=== PATIENT | female | born 1965 | race Hispanic/Latino ===

== ENCOUNTER 2021-03-21 10:11 | Emergency (ER) | payer OTHER ==
--- NOTE | 2021-03-21 11:18 | ER ---
Nurse's Notes [facility] Name: Linwood Glasgow Age: 56 yrs Sex: Female : 1965 Arrival Date: 03/21/2021 Time: 10:17 Bed 11 Private MD: Diagnosis: Other chronic pain Presentation: 03/21 10:24 Chief complaint: Patient states: She has had back pain for "months and months". Patient ap3 states the pain from her back has been giving her headaches and making her arms hurt as well. Patient reports she has an appointment with Dr. Salguero tomorrow. Patient reports that she has seen multiple Dr's for this issue, but no one has given her any pain medication. Coronavirus screen: At this time, the client does not indicate any symptoms associated with coronavirus-19. Ebola Screen: No symptoms or risks identified at this time. Initial Sepsis Screen: Does the patient meet any 2 criteria? No. Patient's initial sepsis screen is negative. Does the patient have a suspected source of infection? No. Patient's initial sepsis screen is negative. Risk Assessment: Do you want to hurt yourself or someone else? Patient reports no desire to harm self or others. Onset of symptoms is unknown. 10:24 Method Of Arrival: Ambulatory ap3 10:24 Acuity: BELA 4 ap3 Triage Assessment: 10:28 General: Appears in no apparent distress. Behavior is calm, cooperative. Pain: ap3 Complains of pain in back Pain radiates to right arm and left arm and head. Neuro: Level of Consciousness is awake, alert, obeys commands, Oriented to person, place, time, situation, Moves all extremities. Gait is steady, Speech is normal. Cardiovascular: Patient's skin is warm and dry. Respiratory: Airway is patent Respiratory effort is even, unlabored, Respiratory pattern is regular, symmetrical. Musculoskeletal: Range of motion: intact in all extremities. 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 Last tetanus immunization: unknown. - Social history:: Smoking status: Patient reports the use of cigarette tobacco products, smokes one-half pack cigarettes per day. Screenin:29 Abuse screen: Denies threats or abuse. Nutritional screening: No deficits noted. ap3 Tuberculosis screening: No symptoms or risk factors identified. Fall Risk None identified. Vital Signs: 10:35 BP 123 / 82; Pulse 76; Resp 17; Temp 98.4(TE); Pulse Ox 100% on R/A; Weight 68.04 kg; ap3 Height 5 ft. 2 in. (157.48 cm); 10:35 Body Mass Index 27.44 (68.04 kg, 157.48 cm) ap3 ED Course: 10:17 Patient arrived in ED. ds1 10:23 Devika Singh, TELLO is Primary Nurse. ap3 10:25 Enrrique Encarnacion PA is PHCP. mauri 10:25 Joseph Virk MD is Attending Physician. [facility] 10:27 Triage completed. ap3 10:30 Arm band placed on right wrist. ap3 10:30 Patient has correct armband on for positive identification. Bed in low position. Call ap3 light in reach. Side rails up X 1. Pulse ox on. NIBP on. Door closed. Noise minimized. 11:26 No provider procedures requiring assistance completed. Patient did not have IV access ap3 during this emergency room visit. Administered Medications: 10:50 Drug: Ketorolac 30 mg Route: IM; Site: left deltoid; ap3 11:16 Follow up: Response: No adverse reaction; Pain is decreased ap3 Outcome: 11:18 Discharge ordered by . [facility] 11:26 Discharged to home ambulatory. ap3 11:26 Condition: good 11:26 Discharge instructions given to patient, Instructed on discharge instructions, follow up and referral plans. medication usage, Demonstrated understanding of instructions, follow-up care, medications, Prescriptions given X 2. 11:26 Patient left the ED. ap3 Signatures: Enrrique Encarnacion PA PA jmm Sanford, Demi ds1 Devika Singh, RN RN ap3 Corrections: (The following items were deleted from the chart) 10:28 10:27 PMHx: Rheumatic fever; ap3 ap3
--- NOTE | 2021-03-21 11:19 | EDPHYS ---
Physician Documentation [facility] Name: Linwood Glasgow Age: 56 yrs Sex: Female : 1965 Arrival Date: 03/21/2021 Time: 10:17 Bed 11 Private MD: Joseph Griffin HPI: 03/21 11:14 This 56 yrs old Female presents to ER via Ambulatory with complaints of Back jmm Pain, Headache. 11:14 The patient presents with pain that is chronic, with no known mechanism of injury. jmm Onset: The symptoms/episode began/occurred Began in 2013. The pain does not radiate. Associated signs and symptoms: Pertinent negatives: abdominal pain. Modifying factors: The patient symptoms are alleviated by nothing, the patient symptoms are aggravated by any movement. This is a 56-year-old female with history of osteoarthritis, rheumatoid arthritis, lupus that presents emerged department with complaints of left upper back pain and right upper back pain. Patient states she has had these symptoms since 2013. States she just moved from [place] and does not have medication to help with her pain. . 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 Last tetanus immunization: unknown. - Social history:: Smoking status: Patient reports the use of cigarette tobacco products, smokes one-half pack cigarettes per day. ROS: 11:14 Constitutional: Negative for fever, chills, and weight loss, Cardiovascular: Negative jmm for chest pain, palpitations, and edema, Respiratory: Negative for shortness of breath, cough, wheezing, and pleuritic chest pain. 11:14 Back: Positive for pain with movement. 11:14 All other systems are negative. Exam: 11:14 Constitutional: This is a well developed, well nourished patient who is awake, alert, jmm and in no acute distress. Head/Face: atraumatic. Eyes: EOMI, no conjunctival erythema appreciated ENT: Moist Mucus Membranes Neck: Trachea midline, Supple Chest/axilla: Normal chest wall appearance and motion. Cardiovascular: Regular rate and rhythm. No edema appreciated Respiratory: Normal respirations, no respiratory distress appreciated Abdomen/GI: Non distended, soft 11:14 Back: pain, that is moderate, of the left trapezius, right trapezius, left scapular area and right scapular area. 11:14 Musculoskeletal/extremity: ROM: intact in all extremities. 11:14 Neuro: Orientation: is normal, Mentation: is normal, Memory: is normal. 11:14 Psych: Behavior/mood is pleasant, cooperative. Vital Signs: 10:35 BP 123 / 82; Pulse 76; Resp 17; Temp 98.4(TE); Pulse Ox 100% on R/A; Weight 68.04 kg; ap3 Height 5 ft. 2 in. (157.48 cm); 10:35 Body Mass Index 27.44 (68.04 kg, 157.48 cm) ap3 MDM: 10:26 Patient medically screened. bill 11:17 Data reviewed: vital signs, nurses notes. Counseling: I had a detailed discussion with jarvis the patient and/or guardian regarding: the historical points, exam findings, and any diagnostic results supporting the discharge/admit diagnosis, the need for outpatient follow up, to return to the emergency department if symptoms worsen or persist or if there are any questions or concerns that arise at home. ED course: Pain pain is chronic, vital signs are within normal limits. I do not currently suspect dissection. Patient will be prescribed medication to help with the discomfort. Patient has follow-up with PCP tomorrow.. Administered Medications: 10:50 Drug: Ketorolac 30 mg Route: IM; Site: left deltoid; ap3 11:16 Follow up: Response: No adverse reaction; Pain is decreased ap3 Disposition: 11:39 Co-signature as Attending Physician, Joseph Virk MD I agree with the assessment and bill plan of care. Disposition Summary: 03/21/21 11:18 Discharge Ordered Location: Home [facility] Condition: Stable [facility] Diagnosis - Other chronic pain [facility] Followup: mauri - With: Private Physician - When: 1 - 2 days - Reason: Recheck today's complaints, Continuance of care, Re-evaluation by your physician Discharge Instructions: - Discharge Summary Sheet mauri - Chronic Pain, Adult [facility] Forms: - Medication Reconciliation Form jarvis - Thank You Letter jmm - Antibiotic Education jmm - Prescription Opioid Use [facility] Prescriptions: - Voltaren 1 % Topical gel - apply 4 gram by TOPICAL route 4 times per day; 1 tube; Refills: 0, Product [facility] Selection Permitted - Zanaflex 4 mg Oral Tablet - take 1 tablet by ORAL route every 8 hours As needed; 20 tablet; Refills: 0, [facility] Product Selection Permitted Signatures: Joseph Virk MD MD cha Mickail, Joel, PA PA jmm Prokisch, Amanda RN RN ap3 Corrections: (The following items were deleted from the chart) 10:28 10:27 PMHx: Rheumatic fever; ap3 ap3
[2021-03-21 11:34] VITALS: BP 123/82; TEMP 98.4; O2SAT 100
[2021-03-21] MEDS ORDERED: KETOROLAC 30 MG/ML INJ ONE (11:47)
== END 2021-03-21 11:26 | disposition home or self-care (01) ==
LOC: ER 10:11
DX: G89.29 Other chronic pain (principal); F17.210 Nicotine dependence, cigarettes, uncomplicated
CPT/HCPCS: 96372; 99283

== ENCOUNTER 2021-03-28 18:26 | Emergency (ER) | payer OTHER ==
--- NOTE | 2021-03-28 20:30 | EDPHYS ---
Physician Documentation [facility] Name: Linwood Glasgow Age: 56 yrs Sex: Female : 1965 Arrival Date: 03/28/2021 Time: 18:29 Bed 23 Private MD: Bobby Salguero T ED Physician Ginna Fuentes HPI: 03/28 19:09 This 56 yrs old Female presents to ER via Ambulatory with complaints of jmm Headache, Back Pain, Shoulder Pain. 19:09 The patient presents with pain that is chronic, with no known mechanism of injury. jmm Onset: The symptoms/episode began/occurred gradually, 2013. Associated signs and symptoms: Pertinent negatives:. Modifying factors: The patient symptoms are alleviated by nothing, the patient symptoms are aggravated by movement. This is a 56-year-old female with history of lupus, osteoarthritis, rheumatoid arthritis that presents to the ER approximately 1 week following previous visit for similar chronic complaint complaint. Patient states she is just moved to the area and is still looking for a PCP will follow up with on the . Patient has had ongoing upper back pain which radiates to the shoulders and sometimes up to the neck as well and causes headache. Patient has experienced this type of pain since 2013. Patient states there is no new character of the pain, denies fever, denies chest pain.. 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 - Social history:: Smoking status: Patient reports the use of cigarette tobacco products, 2-3 cigarettes a day . ROS: 19:09 Constitutional: Negative for fever, chills, and weight loss, Cardiovascular: Negative jmm for chest pain, palpitations, and edema, Respiratory: Negative for shortness of breath, cough, wheezing, and pleuritic chest pain. 19:09 Back: Positive for pain with movement. 19:09 MS/extremity: Positive for pain. 19:09 Neuro: Positive for headache. 19:09 All other systems are negative. Exam: 19:09 Constitutional: This is a well developed, well nourished patient who is awake, alert, jmm and in no acute distress. Head/Face: atraumatic. Eyes: EOMI, no conjunctival erythema appreciated ENT: Moist Mucus Membranes Neck: Trachea midline, Supple Chest/axilla: Normal chest wall appearance and motion. Cardiovascular: Regular rate and rhythm. No edema appreciated Respiratory: Normal respirations, no respiratory distress appreciated Abdomen/GI: Non distended, soft 19:09 Back: Paraspinal thoracic pain noted bilaterally worse on the right side. 19:09 Musculoskeletal/extremity: ROM: intact in all extremities. 19:09 Skin: Appearance: Color: normal in color. 19:09 Neuro: Orientation: is normal, Mentation: is normal, Memory: is normal. 19:09 Psych: Behavior/mood is pleasant, cooperative. Vital Signs: 18:54 BP 142 / 77; Pulse 73; Resp 18 S; Temp 97.9(TE); Pulse Ox 100% on R/A; Weight 68.04 kg aa5 (R); Height 5 ft. 2 in. (157.48 cm) (R); 18:54 Body Mass Index 27.44 (68.04 kg, 157.48 cm) aa5 MDM: 20:25 Patient medically screened. [facility] 20:26 Data reviewed: vital signs, nurses notes. Counseling: I had a detailed discussion with [facility] the patient and/or guardian regarding: the historical points, exam findings, and any diagnostic results supporting the discharge/admit diagnosis, the need for outpatient follow up, to return to the emergency department if symptoms worsen or persist or if there are any questions or concerns that arise at home. ED course: Patient is alert and non toxic in appearance. Pain in chronic. States having similar pain for years. I do not suspect dissection. Patient advised to follow up with pcp and otherwise given strict return precautions. patient understood and agrees with the plan of care. . 03/28 18:59 Order name: Shoulder Right (2 View) XRAY aa5 Administered Medications: 20:48 Drug: Decadron (dexamethasone) 10 mg Route: IM; Site: left deltoid; mr2 20:48 Drug: Ketorolac 30 mg Route: IM; Site: left deltoid; mr2 Disposition: 03/29 07:12 Co-signature as Attending Physician, Ginna Fuentes MD I agree with the assessment and sp3 plan of care. Disposition Summary: 03/28/21 20:29 Discharge Ordered Location: Home [facility] Condition: Stable [facility] Diagnosis - Other chronic pain [facility] Followup: [facility] - With: Bobby Salguero MD - When: 2 - 3 days - Reason: Recheck today's complaints, Continuance of care, Re-evaluation by your physician Discharge Instructions: - Discharge Summary Sheet [facility] - Chronic Pain, Adult [facility] Forms: - Medication Reconciliation Form [facility] - Thank You Letter [facility] - Antibiotic Education [facility] - Prescription Opioid Use [facility] Prescriptions: - orphenadrine citrate 100 mg Oral Tablet Sustained Release - take 1 tablet by ORAL route 2 times per day As needed; 20 tablet; Refills: 0, [facility] Product Selection Permitted Signatures: Dispatcher [employer] EDEnrrique Guerra PA PA jmm Nasima Fang, RN RN aa5 Ginna Fuentes MD MD sp3 Alistair Elaine RN RN mr2
--- NOTE | 2021-03-28 20:30 | ER ---
Nurse's Notes [facility] Name: Linwood Glasgow Age: 56 yrs Sex: Female : 1965 Arrival Date: 03/28/2021 Time: 18:29 Bed 23 Private MD: Bobby Salguero T Diagnosis: Other chronic pain Presentation: 03/28 18:54 Chief complaint: Patient states: "I was just here for the same thing, I got a lot of aa5 pain and pressure on my right shoulder and it travels to my head". 18:54 Ebola Screen: No symptoms or risks identified at this time. Initial Sepsis Screen: Does aa5 the patient meet any 2 criteria? No. Patient's initial sepsis screen is negative. Does the patient have a suspected source of infection? No. Patient's initial sepsis screen is negative. Risk Assessment: Do you want to hurt yourself or someone else? Patient reports no desire to harm self or others. 18:54 Acuity: BELA 3 aa5 18:54 Method Of Arrival: Ambulatory aa5 18:54 Coronavirus screen: At this time, the client does not indicate any symptoms associated aa5 with coronavirus-19. Onset of symptoms was March 2021. Triage Assessment: 20:05 Headache History: Denies prior headaches. General: Appears in no apparent distress. mr2 Behavior is calm, cooperative. Pain: Complains of pain in right trapezius and right scapular area Pain does not radiate. Pain currently is 7 out of 10 on a pain scale. Pain began years ago. Also complains of no other associated symptoms. Neuro: Reports numbness weakness in right leg. 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 - Social history:: Smoking status: Patient reports the use of cigarette tobacco products, 2-3 cigarettes a day . Screenin:07 Abuse screen: Denies threats or abuse. Denies injuries from another. Nutritional mr2 screening: No deficits noted. Tuberculosis screening: Risk factors: None. Fall Risk Gait- Weak (10 pts.). Assessment: 20:07 Pain: Complains of pain in right trapezius and right scapular area Pain does not mr2 radiate. Pain currently is 7 out of 10 on a pain scale. Pain began years ago. Is continuous. Neuro: No deficits noted. Reports numbness weakness in right leg. Vital Signs: 18:54 BP 142 / 77; Pulse 73; Resp 18 S; Temp 97.9(TE); Pulse Ox 100% on R/A; Weight 68.04 kg aa5 (R); Height 5 ft. 2 in. (157.48 cm) (R); 18:54 Body Mass Index 27.44 (68.04 kg, 157.48 cm) aa5 ED Course: 18:29 Patient arrived in ED. mr 18:30 Bobby Salguero MD is Private Physician. mr 18:50 Arm band placed on. aa5 18:57 Triage completed. aa5 19:58 Ciera Lopez, TELLO is Primary Nurse. ld1 20:05 Shoulder Right (2 View) XRAY In Process Unspecified. EDMS 20:06 Enrrique Encarnacion PA is PHCP. [facility] 20:06 Ginna Fuentes MD is Attending Physician. [facility] 20:07 Patient has correct armband on for positive identification. Bed in low position. Call mr2 light in reach. Side rails up X2. 20:07 No provider procedures requiring assistance completed. mr2 20:29 Bobby Salguero MD is Referral Physician. jmm 20:49 Patient did not have IV access during this emergency room visit. mr2 Administered Medications: 20:48 Drug: Decadron (dexamethasone) 10 mg Route: IM; Site: left deltoid; mr2 20:48 Drug: Ketorolac 30 mg Route: IM; Site: left deltoid; mr2 Outcome: 20:29 Discharge ordered by . jmm 20:49 Discharged to home ambulatory. mr2 20:49 Condition: stable 20:49 Discharge instructions given to patient, Instructed on discharge instructions, follow up and referral plans. medication usage, Prescriptions given X 1. 20:50 Patient left the ED. mr2 Signatures: Dispatcher [employer] EDMS Enrrique Encarnacion PA PA [facility] [place] mr Nasima Fang RN RN aa5 Ciera Lopez RN RN ld1 Alistair Elaine RN RN mr2 Corrections: (The following items were deleted from the chart) 18:58 18:54 BP 142 / 77; Pulse 73bpm; Resp 18bpm; Spontaneous; Pulse Ox 100% RA; Temp 97.9F aa5 Temporal; aa5
[2021-03-28] MEDS ORDERED: KETOROLAC 30 MG/ML INJ ONE (20:47)
[2021-03-28] MEDS ORDERED: dexAMETHasone 10 MG/ML VIAL ONE (20:47)
--- NOTE | 2021-03-28 21:39 | RAD REPORT ---
EXAM DESCRIPTION: Shoulder Right 2 View - 03/28/2021 8:04 pm CLINICAL HISTORY: PAIN, no trauma history specified COMPARISON: No comparisons TECHNIQUE: Internal and external rotation views of the right shoulder were obtained. FINDINGS: There is no fracture or dislocation. AC joint shows minimal degenerative change. No AC mariana int separation. Acromial humeral joint space is normal range with no abnormal soft tissue calcificati ons. . No acute or suspicious findings. IMPRESSION: Negative two-view right shoulder examination for acute finding. Minimal AC joint degenerative change.
[2021-03-28 22:39] VITALS: BP 142/77; TEMP 97.9; O2SAT 100
== END 2021-03-28 20:50 | disposition home or self-care (01) ==
LOC: ER 18:26
DX: G89.29 Other chronic pain (principal)
CPT/HCPCS: 73030; 96372; 99283; J1100